=== PATIENT | female | born 1970 | race Caucasian/White ===

== ENCOUNTER 2016-09-07 08:08 | Day surgery (SDC) | payer OTHER ==
[2016-09-07] MEDS ORDERED: BOTULINUM TOXIN A 100 UNITS VIAL NR ONE (09:00)
[2016-09-07] MEDS ORDERED: LIDOCAINE HCL/PF 2% SDV 5ML VIAL ONE (09:09)
[2016-09-07] MEDS ORDERED: PROPOFOL 20 ML ONE ×2 (09:09)
[2016-09-07] MEDS ORDERED: MIDAZOLAM HCL 2 MG/2 ML SINGLE DOSE VIAL ONE (09:10)
[2016-09-07] MEDS ORDERED: DEXAMETHASONE SOD PHOSPHATE 4 MG/1 ML VIAL ONE (09:13)
[2016-09-07] MEDS ORDERED: ceFAZolin SODIUM 1 GM VIAL IVPB ONE (09:28)
[2016-09-07] MEDS ORDERED: ceFAZolin SODIUM 1 GM VIAL ONE (09:31)
[2016-09-07] MEDS ORDERED: oxyCODONE HCL 5 MG TABLET PO PRN ×2 (09:46→11:47)
[2016-09-07] MEDS ORDERED: ONDANSETRON 4 MG/2 ML VIAL IVPUSH PRN (09:46)
[2016-09-07] MEDS ORDERED: IBUPROFEN 800 MG/8 ML IJ IVPB PRN (09:46)
[2016-09-07] MEDS ORDERED: LACTATED RINGERS SOLUTION 1,000 ML IV SCH (10:00)
[2016-09-07] MEDS ORDERED: ACETAMINOPHEN 325 MG TABLET (FP) PO PRN ×2 (10:05→11:47)
[2016-09-07] MEDS ORDERED: OXYCODONE/APAP 5/325MG COMBO TABLET PO PRN (10:05)
--- NOTE | 2016-09-07 10:56 | OP ---
DATE OF OPERATION: 09/07/2016 PREOPERATIVE DIAGNOSIS: Overactive bladder. POSTOPERATIVE DIAGNOSIS: Overactive bladder. OPERATIVE PROCEDURE: Cystourethroscopy and Botox infiltration of bladder muscle. ANESTHESIA: General. Under above-stated anesthesia, patient was prepped and draped in the usual sterile manner. She was placed in the dorsal lithotomy position. Cystoscopy revealed a grade 1 trabeculation of the bladder. No lesions were noted. No calculi were seen. Ureteral orifices were within normal limits with efflux of clear urine. One hundred units of Botox were then constituted with 20 mL of sterile water. Injections of 1 mL of the mixture were commenced 1 cm above the interureteric ridge. Five injections were placed across the bladder from right to left. Another row of 5 injections was placed above that. A 3rd row was placed above that, and a 4th row was placed above that. No active bleeding was noted. The bladder was emptied. The scope was removed. The patient tolerated the procedure well. She returned to the recovery room in good condition. Danial [id number]
[2016-09-07 12:03] VITALS: BP 105/68; PULSE 72; TEMP 97.5
--- NOTE | 2016-09-07 12:23 | HP ---
HISTORY AND PHYSICAL DATE OF ADMISSION: 09/07/2016 HISTORY OF PRESENT ILLNESS: Patient is a 46-year-old female with history of overactive bladder. Multiple medications including anti-cholinergics and beta-3 agonists have failed. Kegel exercises have also failed. Patient has been on maximum multi-dose medications without help. She complains of nocturia x8, frequency, urgency and urgency/incontinence. She denies dysuria or hematuria. PAST MEDICAL HISTORY: She does have history of depression. Has undergone a disk procedure. Also has had a hysterectomy. She is G1, P1. She is also dyslipidemic, on a statin. PHYSICAL EXAM: Revealed a well-developed, well-oriented female. Abdomen is soft. There was no CVA tenderness. Pelvic exam revealed a grade 2 cystocele, grade 1 rectocele, atrophic vaginitis and a positive Ruel test. Urodynamic evaluation revealed a small-capacity bladder with detrusor overactivity, straining to initiate and complete void without obstruction. Pure stress leak was noted with cough, leak point of 75 cm of H20. IMPRESSION AT PRESENT: Overactive bladder. PLAN: Cystourethroscopy and injection of Botox. MYESHA ADLER M.D. [id number]
== END 2016-09-07 12:40 | disposition home or self-care (01) ==
LOC: JASU-SURG 08:08
PROVIDERS: ATTEND Urology
PROC: 3E0K8GC Introduction of Other Therapeutic Substance into Genitourinary Tract, Via Natural or Artificial Opening Endoscopic (ICD-10-PCS; principal; 2016-09-07 09:00)
DX: N32.81 Overactive bladder (principal)
CPT/HCPCS: 52287; J0585; 87086; 94010